=== PATIENT | female | born 1975 | race Caucasian/White ===

== ENCOUNTER 2017-08-19 13:24 | Emergency (ER) | payer MEDICAID ==
[2017-08-19 13:31] VITALS: RESP 16; TEMP 97.9
--- NOTE | 2017-08-19 14:17 | EDPHY ---
H & P Stated Complaint: BELIEVES SHE IS HAVING GALL BLADDER ISSUES HPI/ROS: CHIEF COMPLAINT: Persistent vomiting and diarrhea HISTORY OF PRESENT ILLNESS: The patient is a 41 y/o female with a history of GERD,complaining of persistent nausea and vomiting onset Tuesday, two days ago. She has had a history of intermittent nausea and vomiting since 1999 and was treated with some success for GERD. Several years ago she had an ultrasound of her gallbladder that was negative for any issues. She went to a natural doctor in [place] who said she has gallbladder problems and has been avoiding greasy and fatty food since with success in treating her symptoms. Tuesday night she ate fried fish and tacos. Tuesday morning she felt ill and experienced nausea and vomiting. Symptoms have persisted and are accompanied by hot and cold flashes, prompting her to present today. She describes a hot pain in her esophagus that extends into the middle of her abdomen and makes it difficult for her to calm down. The GI cocktail she typically takes for her symptoms has run out. Today she has not vomited and has been able to keep down water and ice chips. She denies any other associated symptoms. She has not had fever. She has not had diarrhea. She denies urinary symptoms. REVIEW OF SYSTEMS: A ten point review of systems was performed and is negative with the exception of the items mentioned in the HPI. Past medical history: 1. GERD 2. Nausea and vomiting 3. Possible gallbladder issue Past surgical history: Denies Family history: Non-contributory Social history: Friend at bedside, no smoking, no drinking, Dr. Bruce, PCP. General Appearance: Alert. Vital signs reviewed. Blood pressure 173/110. Eyes: Pupils equal and round, no conjunctival injection, no discharge. Anicteric. ENT, Mouth: Mucous membranes are moist, no oropharyngeal erythema or edema. Neck: No lymphadenopathy, supple. Respiratory: Lungs are clear to auscultation; no wheezes, rales, or rhonchi. Cardiovascular: Regular rate and rhythm; no murmur, rub, or gallop. Gastrointestinal: Abdomen is soft with mild diffuse tenderness without guarding , no masses or organomegaly, bowel sounds normal. Skin: Warm and dry, no rashes on exposed skin, normal color. Back: Nontender to palpation over the thoracolumbar spine. No CVAT. Extremities: No lower extremity edema, no calf tenderness or swelling. Neurological: Alert and oriented. Moving all four extremities easily and equally. Psychiatric: Normal affect. - Personal History LMP (Females 10-55): 15-21 Days Ago Current Tetanus Diphtheria and Acellular Pertussis (TDAP): No - Medical/Surgical History Hx Asthma: No Hx Chronic Respiratory Disease: No Hx Diabetes: No Hx Cardiac Disease: No Hx Renal Disease: No Hx Cirrhosis: No Hx Alcoholism: No Hx HIV/AIDS: No Hx Splenectomy or Spleen Trauma: No Other PMH: REFLUX - Social History Smoking Status: Never smoked Constitutional: Initial Vital Signs Temperature (C) 36.6 C 08/19/17 13:28 Heart Rate 65 08/19/17 13:28 Respiratory Rate 16 08/19/17 13:28 Blood Pressure 173/110 H 08/19/17 13:28 O2 Sat (%) 100 08/19/17 13:28 O2 Delivery Mode Room Air Allergies/Adverse Reactions: No Known Allergies Allergy (Unverified 08/19/17 13:31) Home Medications: Medication Instructions Recorded Mbx Soln;Maalox/Diphen/Lido 5 ml PO BID PRN #30 ml 08/19/17 [Maalox/Diphenhydramine/Lido] No Known Home Meds 08/19/17 Medical Decision Making - Diagnostics Imaging: Discussed imaging studies w/ flight kitchen manager Radiologist, I viewed and interpreted images myself ED Course/Re-evaluation: The patient is a 41 y/o female with a history of nausea and vomiting complaining of such symptoms, onset two days ago. She has had an ultrasound in the past that did not show any significant findings. She has been avoiding greasy and fatty foods with success in treating her symptoms. She ate fried fish and tacos Tuesday. Beginning Tuesday morning she has been experiencing nausea and vomiting with hot and cold flashes. She denies any other symptoms. IV labs, abdominal ultrasound, 20 mg Famotidine, 1 mg Dilauded, 4 mg Zofran, 1 L NS, and GI cocktail. 1501: I reassessed patient and informed her of the results of her workup. Right upper quadrant ultrasound shows possible sludge in the gallbladder, no other abnormalities. She is feeling better. Labs reviewed. Her bilirubin is elevated at 1.7. Liver functions otherwise normal. White blood cell count is slightly elevated with a left shift. No evidence of urinary tract infection. 16 35: Patient complaining of abdominal "cramping "again. She states that her abdomen seems to be "seda". She has nausea but has not been vomiting. On examination her abdomen is soft with no focal tenderness. She is mildly tachypneic, crying out, and appears anxious. Ativan 1 mg IV will be administered. Significant improvement after the Ativan. She had no further abdominal discomfort. She has not vomited. She is comfortable returning home. She has requested a prescription for a GI cocktail in this was provided. I have not found evidence of cholelithiasis or cholecystitis. Lipase is normal and I do not suspect pancreatitis. No evidence of ureterolithiasis or urinary tract infection/pyelonephritis. I do not think that she has a cyclic vomiting syndrome. I have reassured her about her gallbladder. I recommend that she continue avoiding fatty and greasy foods, as this has worked well for her in the past. I am recommending an [id number] acid blocking medication for possible GERD. She will follow up with her primary care physician. She was hypertensive on arrival but this resolved and she was normotensive at discharge. Differential Diagnosis: Abdominal pain including but not limited to appendicitis, cholecystitis, pancreatitis, GERD, gastritis and urinary tract infection. - Data Points Laboratory Results: Laboratory Results 08/19/17 14:21 08/19/17 14:21 Medications Given: Discontinued Medications Al Hydroxide/Mg Hydroxide (Maalox Susp) 5 ml PO Q4HRS PRN PRN Reason: Indigestion Stop: 02/15/18 14:39 Last Admin: 08/19/17 15:06 Dose: 5 ml Hydromorphone HCl (Dilaudid) 0.5 mg IVP EDNOW ONE Stop: 08/19/17 14:52 Last Admin: 08/19/17 15:05 Dose: 0.5 mg Hydromorphone HCl (Dilaudid) 0.5 mg IVP Q4HRS PRN PRN Reason: Pain, Severe Unable to Take PO Stop: 08/29/17 16:15 Last Admin: 08/19/17 16:18 Dose: 0.5 mg Famotidine/Sodium Chloride (Pepcid 20 Mg (Premix)) 50 mls @ 200 mls/hr IV ONCE ONE Stop: 08/19/17 14:41 Last Admin: 10/06/17 14:43 Dose: 50 mls Sodium Chloride (Ns) 1,000 mls @ 0 mls/hr IV ONCE ONE PRN Reason: Wide Open Stop: 08/19/17 16:18 Last Admin: 08/19/17 15:00 Dose: 1,000 mls Lidocaine (Lidocaine 2% Viscous) 5 ml PO EDNOW ONE Stop: 08/19/17 14:42 Last Admin: 08/19/17 14:45 Dose: 5 ml Lorazepam (Ativan Injection) 1 mg IVP EDNOW ONE Stop: 08/19/17 16:37 Last Admin: 08/19/17 16:45 Dose: 1 mg Ondansetron HCl (Zofran) 4 mg IVP EDNOW ONE Stop: 08/19/17 14:27 Last Admin: 08/19/17 14:44 Dose: 4 mg Departure - Departure Disposition: Home, Routine, Self-Care Clinical Impression: Chronic GERD Nausea & vomiting Qualifiers: Vomiting type: unspecified Vomiting Intractability: non-intractable Qualified Code(s): R11.2 - Nausea with vomiting, unspecified Abdominal pain Qualifiers: Abdominal location: generalized Qualified Code(s): R10.84 - Generalized abdominal pain Condition: Good Instructions: Abdominal Pain in Children (ED), Gastroesophageal Reflux Disease (ED), Acute Nausea and Vomiting (ED), Abdominal Pain (ED) Additional Instructions: 1. Take GI cocktail as needed for symptoms. 2. Follow-up with your Primary Care Provider and Gastroenterology (Dr. Betancur) for unimproved symptoms in 2-3 days. 3. Return to the ED for uncontrollable vomiting, fever, or other worsening of condition. Referrals: Deborah Bruce MD [Primary Care Provider] - As per Instructions Jessee Betancur MD [Medical Doctor] - As per Instructions Prescriptions: Mbx Soln;Maalox/Diphen/Lido [Maalox/Diphenhydramine/Lido] 5 ml PO BID PRN #30 ml PRN Reason: heartburn Report Scribed for: Gabby Carty Report Scribed by: Alisha Craft Date of Report: 08/19/17 Time of Report: 14:59 Physician Review and Approval Statement: 08/19/17 14:17 Portions of this note were transcribed by the medical support specialist. I, Dr. Gabby Carty, personally performed the history, physical exam, and medical decision- making; and confirmed the accuracy of the information in the transcribed note.
[2017-08-19] MEDS ORDERED: MAG HYDROX/AL HYDROX/SIMETH 30 ML UDCUP ONE (14:20)
[2017-08-19] MEDS ORDERED: LIDOCAINE 2% VISCOUS 15 ML UDCUP ONE (14:21)
[2017-08-19] MEDS ORDERED: FAMOTIDINE 20 MG/NACL 50 ML IV ONE (14:27)
[2017-08-19 14:31] LABS: % IMMATURE GRANULYOCYTES 0.5 % (0.0-1.1); ABSOLUTE IMMATURE GRANULOCYTES 0.05 10^3/uL (0.00-0.10); ADD DIFF? NO; ADD MORPH? NO; ADD SCAN? NO; ATYPICAL LYMPHOCYTE FLAG 0 (0-99); FRAGMENT RBC FLAG 0 (0-99); HEMATOCRIT 41.4 % (38.0-47.0); LEFT SHIFT FLG 0 (0-99); LIPEMIA HEMOLYSIS FLAG 90 (0-99); MEAN CELL HEMOGLOBIN 33.3 pg (27.9-34.1); MEAN CELL HEMOGLOBIN CONCENTR. 36.2 g/dL (32.4-36.7); MEAN PLATELET VOLUME 11.5 fL (8.7-11.7); PLATELET CLUMPS FLAG 0 (0-99); PLATELET COUNT 237 10^3/uL (150-400); RED CELL DISTRIBUTION WIDTH 12.3 % (11.5-15.2)
[2017-08-19] MEDS ORDERED: MAG HYDROX/AL HYDROX/SIMETH 30 ML UDCUP PO PRN (14:40)
[2017-08-19] MEDS ORDERED: LIDOCAINE 2% VISCOUS 15 ML UDCUP PO ONE (14:41)
[2017-08-19] MEDS: ONDANSETRON 4 MG/2 ML VIAL IVP ONE (14:44)
[2017-08-19 14:45] LABS: ALANINE AMINOTRANSFERASE 26 IU/L (9-52); ALKALINE PHOSPHATASE 70 IU/L (38-126); ANION GAP 19 mEq/L (8-16); ASPARTATE AMINOTRANSFERASE 31 IU/L (14-46); BILIRUBIN,TOTAL 1.7 mg/dL (0.1-1.4); BILIRUBIN-CONJUGATED 0.3 mg/dL (0.0-0.5); BILIRUBIN-UNCONJUGATED 1.4 mg/dL (0.0-1.1); CALCIUM 9.7 mg/dL (8.5-10.4); CARBON DIOXIDE 20 mEq/l (22-31); CHLORIDE 103 mEq/L (97-110); CREATININE 0.8 mg/dL (0.6-1.0); GLOMERULAR FILTRATION RATE > 60; GLUCOSE 136 mg/dL (70-100); POTASSIUM 3.6 mEq/L (3.5-5.2); SODIUM 142 mEq/L (134-144); TOTAL PROTEIN 8.5 g/dL (6.3-8.2)
[2017-08-19] MEDS ORDERED: HYDROmorphONE/DILAUDID 1 MG/ML INJ IVP ONE (14:51)
[2017-08-19] MEDS ORDERED: HYDROmorphONE/DILAUDID 1 MG/ML INJ IVP PRN (16:16)
[2017-08-19] MEDS ORDERED: NS 1,000 ML IV ONE (16:17)
[2017-08-19] MEDS ORDERED: LORazepam 2 MG/ML INJ IVP ONE (16:36)
[2017-08-19 16:42] LABS: COLOR YELLOW; LEUKOCYTE ESTERASE,URINE NEGATIVE (NEGATIVE); NITRITE,URINE NEGATIVE (NEGATIVE)
[2017-08-19 17:02] LABS: MUCUS TRACE /lpf (NONE-1+)
[2017-08-19 18:01] VITALS: BP 112/67; PULSE 78; O2SAT 92
== END 2017-08-19 17:59 | disposition home or self-care (01) ==
DX: K21.9 Gastro-esophageal reflux disease without esophagitis (principal)
CPT/HCPCS: 96365; J1170; J2060; J2405

== ENCOUNTER → 2017-09-23 | Outpatient (CLI) | payer MEDICAID | LOC: FIMAGING 09:11 | PROVIDERS: ATTEND Internal Medicine | DX: R10.13 Epigastric pain (principal) ==

== ENCOUNTER → 2018-04-11 | Outpatient (CLI) | payer MEDICAID | LOC: FIMAGING 13:38 | PROVIDERS: ATTEND Midwife | DX: Z12.31 Encounter for screening mammogram for malignant neoplasm of breast (principal) ==